=== PATIENT | female | born 1990 | race Caucasian/White ===

== ENCOUNTER → 2016-09-13 | Outpatient (CLI) | payer BC | LOC: BMCIMAGING 10:44 | PROVIDERS: ATTEND Family Medicine | DX: M25.572 Pain in left ankle and joints of left foot (principal) ==

== ENCOUNTER 2018-06-09 20:28 | Emergency (ER) | payer BC ==
[2018-06-09 20:34] VITALS: BP 110/80
[2018-06-09] MEDS ORDERED: IPRATROPIUM/ALBUTEROL 3 ML DEYVIAL IH ONE (20:48)
[2018-06-09] MEDS ORDERED: predniSONE 20 MG TAB PO ONE (20:48)
[2018-06-09] MEDS ORDERED: ALBUTEROL 3 ML DEYVIAL IH ONE (21:29)
--- NOTE | 2018-06-09 22:04 | EDPHY ---
H & P Stated Complaint: cough, chest pressure Time Seen by Provider: 06/09/18 20:36 HPI/ROS: Chief complaint: Trouble breathing History of present illness: This is a 27-year-old female who was sent from urgent care to the emergency department for evaluation of trouble breathing with associated cough with some chest discomfort. Patient has a history of asthma. She has never been hospitalized for it. She reports over the last few days she has had increasing trouble breathing. She has been using her inhaler which has helped but not resolve problem. She is now developing a cough and some tightness in the chest. She does state this feels somewhat like an asthma exacerbation. She denies precipitating factors including fever or cold symptoms. Again albuterol helps but has not resolve the problem. She denies other associated signs or symptoms including no pain or swelling in the arms or legs. Urgent care was concerned as she does have a history of a left upper extremity DVT. In discussing this with her she states the DVT was secondary to a thoracic outlet syndrome, after she had her left 1st rib removed the problem resolved and there has been no further problems with DVT. She did have a hypercoagulable workup in 2013 when she had the DVT and states it was negative. She is not on blood thinners. Review of systems: A 10 point review of systems was obtained and other than described above was negative - Personal History LMP (Females 10-55): 8-14 Days Ago Tetanus Vaccine Date: within 3 years - Medical/Surgical History Hx Asthma: Yes Hx Chronic Respiratory Disease: No Hx Diabetes: No Hx Cardiac Disease: No Hx Renal Disease: No Hx Cirrhosis: No Hx Alcoholism: No Hx HIV/AIDS: No Hx Splenectomy or Spleen Trauma: No Other PMH: pmh- thoracic outlet syndrome w/ complicated DVT to LUE, bipolar disorder. psh- thrombectomy LUE - Social History Smoking Status: Current every day smoker - Physical Exam Exam: General Appearance: Alert, nontoxic. Eyes: Pupils equal and round no pallor or injection. ENT, Mouth: Mucous membranes moist. Respiratory: The patient is speaking in full sentences. There is diffuse expiratory wheezing throughout all lung teresa. No rhonchi or rales. Cardiovascular: Regular rate and rhythm. Gastrointestinal: Abdomen is soft and non tender, no masses, bowel sounds normal. Neurological: Alert and oriented x4. Strength and sensation intact and symmetrical. Skin: Warm and dry, no rashes. Musculoskeletal: No erythema or edema, no asymmetry, of the upper lower extremities to suggest DVT. Psychiatric: Patient is oriented X 3, there is no agitation. Constitutional: Initial Vital Signs Temperature (C) 36.9 C 06/09/18 20:32 Heart Rate 71 06/09/18 20:32 Respiratory Rate 20 06/09/18 20:32 Blood Pressure 110/80 06/09/18 20:32 O2 Sat (%) 95 06/09/18 20:32 Allergies/Adverse Reactions: No Known Allergies Allergy (Verified 06/09/18 20:31) Home Medications: Medication Instructions Recorded Albuterol 06/09/18 predniSONE 40 mg PO DAILY 3 Days tablet 06/09/18 Medical Decision Making - Diagnostics Imaging Results: Imaging Impressions Chest X-Ray 06/09/18 20:48 IMPRESSION: Normal chest x-ray. Imaging: I viewed and interpreted images myself ED Course/Re-evaluation: The patient was discussed with my secondary supervising physician Dr. Mike Macdonald. Patient presents with trouble breathing, cough and some chest tightness. She has a history of asthma. Expiratory wheezing noted on physical exam. Decreased peak flow. She is given a DuoNeb followed by an albuterol neb and prednisone. She reports improvement in symptoms. PFTs improved. I do suspect an asthma exacerbation. She does report after treatment of thoracic outlet syndrome in 2013 her DVT resolved with no further incidents and she had a negative hypercoagulable workup at that time, she has normal vital signs, I believe PE less likely. I did offer pursuing a D-dimer to screen and CT a if needed, she has declined. Patient will be discharged home, she is given a spacer to use with her inhaler. She will be placed on a burst of prednisone. She is to follow up with the primary care doctor for recheck. Strict return precautions are given. Differential Diagnosis: Included but not limited to asthma exacerbation, pulmonary infections, PE less likely given vital signs are stable, and findings suggestive of reactive airway disease noted including expiratory wheezing and decreased peak flow that increased after albuterol. - Data Points Medications Given: Discontinued Medications Albuterol (Proventil Neb) 3 ml IH EDNOW ONE Stop: 06/09/18 21:30 Last Admin: 06/09/18 21:31 Dose: 3 ml Albuterol/Ipratropium (Duoneb) 3 ml IH EDNOW ONE Stop: 06/09/18 20:49 Last Admin: 06/09/18 21:01 Dose: 3 ml Prednisone (Prednisone) 60 mg PO EDNOW ONE Stop: 06/09/18 20:49 Last Admin: 06/09/18 21:01 Dose: 60 mg Departure - Departure Disposition: Home, Routine, Self-Care Clinical Impression: Chest pain Qualifiers: Chest pain type: unspecified Qualified Code(s): R07.9 - Chest pain, unspecified Reactive airway disease Qualifiers: Asthma severity: unspecified severity Asthma persistence: unspecified Asthma complication type: with acute exacerbation Qualified Code(s): J45.901 - Unspecified asthma with (acute) exacerbation Condition: Good Instructions: Chest Pain (ED), Asthma (ED) Additional Instructions: Follow-up with a primary care doctor on Monday or Monday for recheck Continue you're inhaler, 1-2 sprays every 4-6 hours Take prednisone as prescribed Please note we did offer you a D-dimer today If symptoms worsen or new symptoms develop return to the emergency room for recheck Referrals: NONE *PRIMARY CARE P,. [Primary Care Provider] - As per Instructions [facility],. [Clinic] - As per Instructions Prescriptions: predniSONE 40 mg PO DAILY 3 Days tablet
--- NOTE | 2018-06-14 12:34 | CPEKG ---
Test Reason : OPEN Blood Pressure : / mmHG Vent. Rate : 067 BPM Atrial Rate : 067 BPM P-R Int : 147 ms QRS Dur : 093 ms QT Int : 410 ms P-R-T Axes : 055 025 054 degrees QTc Int : 433 ms Sinus rhythm Confirmed by Rohan Duran ([id number]) on 06/14/2018 12:34:16 PM Referred By: Confirmed By:Rohan Duran
== END 2018-06-09 22:10 | disposition home or self-care (01) ==
DX: R07.9 Chest pain, unspecified (principal); J45.901 Unspecified asthma with (acute) exacerbation; F17.200 Nicotine dependence, unspecified, uncomplicated
CPT/HCPCS: J7512; J7613

== ENCOUNTER 2018-07-18 15:13 | Emergency (ER) | payer BC ==
[2018-07-18] MEDS ORDERED: ONDANSETRON 4 MG/2 ML VIAL IVP ONE (16:04)
[2018-07-18] MEDS ORDERED: NS 1,000 ML IV ONE ×2 (16:04→16:35)
--- NOTE | 2018-07-18 16:10 | EDPHY ---
H & P Time Seen by Provider: 07/18/18 15:28 HPI/ROS: CHIEF COMPLAINT: Epigastric abdominal pain and vomiting HISTORY OF PRESENT ILLNESS: Patient had symptoms starting Monday night into Monday of this past week. Started with epigastric pain and then coughing up acid sensation on the night of July 16. Took some Pepto-Bismol and Tums with had some persistent epigastric discomfort on the and then had black stool liquid stool and diarrhea today. Persistent nausea and vomiting. Pain does not radiate. Not better worse with oral intake. No associated lightheaded dizziness or syncope. REVIEW OF SYSTEMS: Eye: no change in vision ENT: no sore throat Cardiac: no chest pain or syncope Pulmonary: no cough or SOB Abdomen: HPI Musculoskeletal: Some low back pain as well during this episode. Skin: no rash Neuro: no headache Constitutional: no fever : no urinary symptoms A comprehensive 10 point review of systems is otherwise negative aside from elements mentioned in the history of present illness. PAST MEDICAL HISTORY: Includes history of thoracic outlet syndrome with left upper extremity DVT, bipolar, asthma Social history: Tobacco smoker General Appearance: Alert and conversant, cooperative. Eyes: No scleral icterus. ENT, Mouth: Normal mucous membranes. Respiratory: Normal respiratory effort, breath sounds equal, lungs are clear to auscultation. Cardiovascular: Regular rate and rhythm. Gastrointestinal: No abdominal tenderness rebound or guarding. Negative Ochoa sign. No McBurney's point tenderness. Rectal exam shows dark brown stool sent for Hemoccult. Neurological: Alert, face symmetric, normal motor and sensory in extremities. Skin: Warm and dry, no rashes. Musculoskeletal: No peripheral edema. Psychiatric: Not agitated. Emergency Department course/MDM: Differential considered including but not limited to gastroenteritis, peptic ulcer disease or reflux, upper GI bleed. Plan for fecal occult blood, normal saline 1 L IV and Zofran 4 mg IV for nausea and vomiting, labs. 1615: Fecal occult blood negative, black stools likely due to Pepto-Bismol. Symptomatic treatment and discharge with PPI. 165: Results reviewed with the patient, likely GERD without evidence of acute upper GI bleed. Patient is feeling better, would like discharge which I think is reasonable. Smoking Status: Current every day smoker Constitutional: Initial Vital Signs Temperature (C) 37 C 07/18/18 15:24 Heart Rate 93 07/18/18 15:24 Respiratory Rate 16 07/18/18 15:24 Blood Pressure 118/81 H 07/18/18 15:24 O2 Sat (%) 97 07/18/18 15:24 O2 Delivery Mode Room Air Allergies/Adverse Reactions: No Known Allergies Allergy (Verified 07/18/18 15:30) Home Medications: Medication Instructions Recorded Albuterol 06/09/18 Pantoprazole Sodium [Protonix] 40 mg PO DAILY #15 tab 07/18/18 Medical Decision Making - Data Points Laboratory Results: Laboratory Results 07/18/18 16:15 07/18/18 16:15 07/18/18 07/18/18 07/18/18 16:15 16:15 16:15 WBC 7.08 10^3/uL 10^3/uL (3.80-9.50) RBC 5.00 10^6/uL 10^6/uL (4.18-5.33) Hgb 15.8 g/dL g/dL (12.6-16.3) Hct 45.2 % % (38.0-47.0) MCV 90.4 fL fL (81.5-99.8) MCH 31.6 pg pg (27.9-34.1) MCHC 35.0 g/dL g/dL (32.4-36.7) RDW 11.5 % % (11.5-15.2) Plt Count 198 10^3/uL 10^3/uL (150-400) MPV 9.5 fL fL (8.7-11.7) Neut % (Auto) 78.9 % H % (39.3-74.2) Lymph % (Auto) 12.0 % L % (15.0-45.0) [place] % (Auto) 6.8 % % (4.5-13.0) Eos % (Auto) 1.7 % % (0.6-7.6) Baso % (Auto) 0.3 % % (0.3-1.7) Nucleat RBC Rel Count 0.0 % % (0.0-0.2) Absolute Neuts (auto) 5.59 10^3/uL 10^3/uL (1.70-6.50) Absolute Lymphs (auto) 0.85 10^3/uL L 10^3/uL (1.00-3.00) Absolute Monos (auto) 0.48 10^3/uL 10^3/uL (0.30-0.80) Absolute Eos (auto) 0.12 10^3/uL 10^3/uL (0.03-0.40) Absolute Basos (auto) 0.02 10^3/uL 10^3/uL (0.02-0.10) Absolute Nucleated RBC 0.00 10^3/uL 10^3/uL (0-0.01) Immature Gran % 0.3 % % (0.0-1.1) Immature Gran # 0.02 10^3/uL 10^3/uL (0.00-0.10) Sodium 135 mEq/L mEq/L (135-145) Potassium 3.9 mEq/L mEq/L (3.5-5.2) Chloride 107 mEq/L mEq/L (97-110) Carbon Dioxide 21 mEq/l L mEq/l (22-31) Anion Gap 7 mEq/L mEq/L (6-14) BUN 13 mg/dL mg/dL (7-23) Creatinine 0.7 mg/dL mg/dL (0.6-1.0) Estimated GFR > 60 Glucose 97 mg/dL mg/dL (70-100) Calcium 9.0 mg/dL mg/dL (8.5-10.4) Total Bilirubin 0.6 mg/dL mg/dL (0.1-1.4) Conjugated Bilirubin 0.3 mg/dL mg/dL (0.0-0.5) Unconjugated Bilirubin 0.3 mg/dL mg/dL (0.0-1.1) AST 20 IU/L IU/L (14-46) ALT 23 IU/L IU/L (9-52) Alkaline Phosphatase 51 IU/L IU/L (38-126) Total Protein 6.9 g/dL g/dL (6.3-8.2) Albumin 4.0 g/dL g/dL (3.5-5.0) Lipase 64 IU/L IU/L (23-300) Beta HCG, Qual NEGATIVE Stool Occult Bld Scrn 07/18/18 16:09 WBC RBC Hgb Hct MCV MCH MCHC RDW Plt Count MPV Neut % (Auto) Lymph % (Auto) [place] % (Auto) Eos % (Auto) Baso % (Auto) Nucleat RBC Rel Count Absolute Neuts (auto) Absolute Lymphs (auto) Absolute Monos (auto) Absolute Eos (auto) Absolute Basos (auto) Absolute Nucleated RBC Immature Gran % Immature Gran # Sodium Potassium Chloride Carbon Dioxide Anion Gap BUN Creatinine Estimated GFR Glucose Calcium Total Bilirubin Conjugated Bilirubin Unconjugated Bilirubin AST ALT Alkaline Phosphatase Total Protein Albumin Lipase Beta HCG, Qual Stool Occult Bld Scrn NEGATIVE (NEGATIVE) Medications Given: Discontinued Medications Sodium Chloride (Ns) 1,000 mls @ 0 mls/hr IV EDNOW ONE; Wide Open PRN Reason: Protocol Stop: 07/18/18 16:05 Last Admin: 07/18/18 16:22 Dose: 1,000 mls Sodium Chloride (Ns) 1,000 mls @ 0 mls/hr IV EDNOW ONE; Wide Open PRN Reason: Protocol Stop: 07/18/18 16:36 Last Admin: 07/18/18 16:51 Dose: 1,000 mls Ondansetron HCl (Zofran) 4 mg IVP EDNOW ONE Stop: 07/18/18 16:05 Last Admin: 07/18/18 16:23 Dose: 4 mg Ondansetron HCl (Zofran Odt 4 Mg Prepack#2) 1 btl TAKEHOME EDNOW ONE Stop: 07/18/18 16:16 Last Admin: 07/18/18 16:50 Dose: 1 btl Departure - Departure Disposition: Home, Routine, Self-Care Clinical Impression: Nausea & vomiting Qualifiers: Vomiting type: unspecified Vomiting Intractability: non-intractable Qualified Code(s): R11.2 - Nausea with vomiting, unspecified Abdominal pain Qualifiers: Abdominal location: epigastric Qualified Code(s): R10.13 - Epigastric pain Condition: Good Instructions: Ondansetron (By mouth), Pantoprazole (By mouth), Acute Nausea and Vomiting (ED) Referrals: Wendy Morton MD [Medical Doctor] - As per Instructions Stand Alone Forms: Work Excuse Prescriptions: Pantoprazole Sodium [Protonix] 40 mg PO DAILY #15 tab
[2018-07-18] MEDS ORDERED: ONDANSETRON 4MG PREPACK#2 BTL TAKEHOME ONE (16:15)
[2018-07-18 16:24] LABS: PLATELET COUNT 198 10^3/uL (150-400)
[2018-07-18 17:07] VITALS: BP 125/70
== END 2018-07-18 17:30 | disposition home or self-care (01) ==
DX: R11.2 Nausea with vomiting, unspecified (principal); R10.13 Epigastric pain; R19.7 Diarrhea, unspecified; F17.200 Nicotine dependence, unspecified, uncomplicated
CPT/HCPCS: 96374; J2405